=== PATIENT | male | born 1970 | race Caucasian/White ===

== ENCOUNTER → 2017-03-17 | Outpatient (CLI) | payer OTHER ==
[~2017-03-17] MED LIST: ALBUTEROL; BENTYL20 MG PO; LEVOTHYROXINE50 MCG PO; MULTIVITAMIN1 EAC1 PO; NEURONTIN800 MG PO; PEPCID40 MG PO; TENORMIN25 MG PO; VYTORIN 10-101 EACH PO; ZESTORETIC,P1 TABLE1 PO; ZOFRAN ODT4 MG PO; ZOFRAN ODT8 MG PO
== END | disposition home or self-care (01) ==
LOC: NUC 11:46
DX: I51.7 Cardiomegaly (principal); I27.2 Other secondary pulmonary hypertension
CPT/HCPCS: 78452; 78999; 93017; 93306; A9500; J2785

== ENCOUNTER 2017-06-01 21:46 | Inpatient (IN) | payer OTHER ==
[~2017-06-01] VITALS: Ht 182.9 cm; Wt 183.2 kg
[~2017-06-01 21:46] MED LIST changes: +COREG3.125 M1 PO; +INDOCIN50 MG PO; +LIPITOR10 MG PO; +METFORMIN HCL500 M1 PO; -MULTIVITAMIN1 EAC1 PO; +MULTIVITAMIN1 EAC2 PO; +NEURONTIN300 MG PO; +PROAIR HFA8.5 GM IH; +PROVENTIL,2.5 MG/3 M IH; +SINGULAIR10 MG PO; +TYLENOL EXTRA500 MG PO
[2017-06-02 12:47] LABS: POINT-OF-CARE METER ID UU14174212
[2017-06-02 12:57] VITALS: BP 132/76
[2017-06-02 16:30] LABS: POINT-OF-CARE METER ID UU13113675
[2017-06-02 18:34] VITALS: BP 129/72
[2017-06-02 20:03] VITALS: BP 126/67
[2017-06-02 23:28] VITALS: BP 141/80
[2017-06-03 00:09] LABS: POINT-OF-CARE METER ID UU14162508
[2017-06-03 03:11] VITALS: BP 137/78
[2017-06-03 05:43] LABS: POINT-OF-CARE METER ID UU14162508
[2017-06-03 05:53] LABS: HEMATOCRIT 37.5 % (38.0-50.0); MCH 28.5 PG (29.0-34.0); MCHC 32.3 G/DL (30.0-36.0); MCV 88.2 FL (86-99); MEAN PLAT.VOLUME 10.6 uM^3 (9.0-12.4); PLATELET COUNT 335 K/uL (156-360); RBC DIS.WIDTH-CV 13.6 % (11.8-14.6); RED BLOOD COUNT 4.25 M/uL (4.00-5.50)
[2017-06-03 06:27] LABS: ANION GAP 9 MEQ/L (2-14); CHLORIDE 99 MEQ/L (99-109); GFR ESTIMATE (CALCULATED) > 59 mL/min/; GLUCOSE 112 mg/dL (70-99); MAGNESIUM 1.9 mg/dl (1.3-2.7); POTASSIUM 4.9 MEQ/L (3.7-5.4); SAMPLE HEMOLYSIS CHECK 0; SAMPLE ICTERIC CHECK 0; SAMPLE LIPEMIA CHECK 0; SODIUM 136 MEQ/L (136-147); UREA NITROGEN (BUN) 16 mg/dL (9-23)
[2017-06-03 06:45] VITALS: BP 130/68
[2017-06-03 11:45] VITALS: BP 137/71
[2017-06-03 12:40] LABS: POINT-OF-CARE METER ID UU14314084
[2017-06-03 15:30] VITALS: BP 122/61
[2017-06-03 18:08] LABS: POINT-OF-CARE METER ID UU14314084
[2017-06-03 19:21] VITALS: BP 126/59
[2017-06-03 23:18] VITALS: BP 116/62
[2017-06-03 23:23] LABS: POINT-OF-CARE METER ID UU14314084
[2017-06-04 03:20] VITALS: BP 131/63
[2017-06-04 06:23] LABS: HEMATOCRIT 35.4 % (38.0-50.0); MCHC 32.8 G/DL (30.0-36.0); MCV 88.5 FL (86-99); MEAN PLAT.VOLUME 11.5 uM^3 (9.0-12.4); PLATELET COUNT 294 K/uL (156-360); RBC DIS.WIDTH-CV 13.5 % (11.8-14.6); RBC DIS.WIDTH-SD 44.3 % (39-53); WHITE BLOOD COUNT 12.9 K/uL (4.1-10.2)
[2017-06-04 07:14] LABS: ANION GAP 10 MEQ/L (2-14); CHLORIDE 99 MEQ/L (99-109); GFR ESTIMATE (CALCULATED) > 59 mL/min/; GLUCOSE 126 mg/dL (70-99); MAGNESIUM 2.1 mg/dl (1.3-2.7); POTASSIUM 5.2 MEQ/L (3.7-5.4); SAMPLE HEMOLYSIS CHECK 0; SAMPLE ICTERIC CHECK 0; SAMPLE LIPEMIA CHECK 0; SODIUM 135 MEQ/L (136-147); UREA NITROGEN (BUN) 16 mg/dL (9-23)
[2017-06-04 07:20] VITALS: BP 139/78
[2017-06-04 12:08] LABS: POINT-OF-CARE METER ID UU14314084; POINT-OF-CARE USER ID PUTDRM
== END 2017-06-04 13:47 | disposition home or self-care (01) | DRG 621 ==
LOC: ENRESERV 21:46 → 2SOUTH 06-02 09:31 → 2EAST 06-02 17:22
PROVIDERS: Surgery
PROC: 0DB64Z3 Excision of Stomach, Percutaneous Endoscopic Approach, Vertical (ICD-10-PCS; principal; 2017-06-02)
DX: E66.01 Morbid (severe) obesity due to excess calories (principal); Z68.43 Body mass index [BMI] 50.0-59.9, adult; R11.2 Nausea with vomiting, unspecified; I10 Essential (primary) hypertension; E78.5 Hyperlipidemia, unspecified; E03.9 Hypothyroidism, unspecified; G47.33 Obstructive sleep apnea (adult) (pediatric); E11.9 Type 2 diabetes mellitus without complications; G58.9 Mononeuropathy, unspecified; F32.9 Major depressive disorder, single episode, unspecified; J45.909 Unspecified asthma, uncomplicated; Z79.84 Long term (current) use of oral hypoglycemic drugs
CPT/HCPCS: 80048; 82948; 83735; 84100; 85027; 99202; C9113; J0131; J0330; J0690; J1100; J1170; J1644; J1650; J1815; J2250; J2405; J2765; J3010; J3480; J7120; S0020